=== PATIENT | female | born 1995 | race Caucasian/White ===

== ENCOUNTER 2017-12-10 11:59 | Emergency (ER) | payer BC ==
--- NOTE | 2017-12-10 12:11 | EDPHY ---
H & P Time Seen by Provider: 12/10/17 12:07 HPI/ROS: CHIEF COMPLAINT: Chest pressure and racing heart rate HISTORY OF PRESENT ILLNESS: Patient presents for evaluation of intermittent chest pressure over the last 2 weeks. This sometimes associated with racing heart rate and sometimes not. Last night she had symptoms for about 30 min with some central chest pressure and sensation that her heart was beating fast although when she took her pulse she felt like it was not actually fast. Currently associated with some tingling and numbness around her mouth and in both hands and fingers. She also feels little bit shaky in her hands and fingers. REVIEW OF SYSTEMS: Eye: no change in vision ENT: no sore throat Cardiac: No fainting or syncope Pulmonary: no cough or SOB or hemoptysis Abdomen: no vomiting, diarrhea, abdominal pain Musculoskeletal: no back pain Skin: no rash Neuro: no headache Constitutional: no fever : no urinary symptoms She says her glucose which is about 80-150 normally has been swinging or last couple weeks between 34 and even up as high as 500 A comprehensive 10 point review of systems is otherwise negative aside from elements mentioned in the history of present illness. PAST MEDICAL HISTORY: Type 1 diabetes Family history: Negative for DVT or PE Social history: No recent travel or immobilization or surgery General Appearance: Alert and conversant, cooperative. Eyes: No scleral icterus. ENT, Mouth: Normal mucous membranes. Respiratory: Normal respiratory effort, breath sounds equal, lungs are clear to auscultation. Cardiovascular: Regular rate and rhythm. Normal radial pulses in both hands, normal capillary refill in fingers. Gastrointestinal: Abdomen is soft and non tender. Neurological: Alert, face symmetric, normal motor and sensory in extremities. Skin: Warm and dry, no rashes. Musculoskeletal: No peripheral edema. No calf tenderness. Psychiatric: Not agitated. Emergency Department course/MDM: Objectively appears to have normal perfusion and upper extremities. She is not hyperventilating and does not think she was hyperventilating earlier. I do not think it is likely she has acute coronary syndrome or pulmonary embolism. Cardiology referral for Holter monitor for her intermittent palpitations. Labs reviewed with the patient now, appear to be appropriately controlled for type 1 diabetic. Smoking Status: Never smoked Constitutional: Initial Vital Signs Temperature (C) 37.0 C 12/10/17 12:03 Heart Rate 95 12/10/17 12:03 Respiratory Rate 16 12/10/17 12:03 Blood Pressure 130/103 H 12/10/17 12:03 O2 Sat (%) 96 12/10/17 12:03 Allergies/Adverse Reactions: No Known Allergies Allergy (Unverified 12/10/17 12:05) Home Medications: Medication Instructions Recorded Concerta 12/10/17 novoLOG 12/10/17 Medical Decision Making - Diagnostics EKG Interpretation: 12-lead EKG interpreted by me; official reading is in computer system. My interpretation is sinus rhythm rate 82, normal intervals and no ischemic changes. - Data Points Laboratory Results: Laboratory Results 12/10/17 12:30 12/10/17 12:30 12/10/17 12/10/17 12/10/17 12:35 12:30 12:30 WBC 6.28 10^3/uL 10^3/uL (3.80-9.50) RBC 4.90 10^6/uL 10^6/uL (4.18-5.33) Hgb 13.7 g/dL g/dL (12.6-16.3) Hct 41.0 % % (38.0-47.0) MCV 83.7 fL fL (81.5-99.8) MCH 28.0 pg pg (27.9-34.1) MCHC 33.4 g/dL g/dL (32.4-36.7) RDW 14.0 % % (11.5-15.2) Plt Count 321 10^3/uL 10^3/uL (150-400) MPV 8.9 fL fL (8.7-11.7) Neut % (Auto) 63.9 % % (39.3-74.2) Lymph % (Auto) 27.1 % % (15.0-45.0) Ware % (Auto) 6.1 % % (4.5-13.0) Eos % (Auto) 2.1 % % (0.6-7.6) Baso % (Auto) 0.6 % % (0.3-1.7) Nucleat RBC Rel Count 0.0 % % (0.0-0.2) Absolute Neuts (auto) 4.02 10^3/uL 10^3/uL (1.70-6.50) Absolute Lymphs (auto) 1.70 10^3/uL 10^3/uL (1.00-3.00) Absolute Monos (auto) 0.38 10^3/uL 10^3/uL (0.30-0.80) Absolute Eos (auto) 0.13 10^3/uL 10^3/uL (0.03-0.40) Absolute Basos (auto) 0.04 10^3/uL 10^3/uL (0.02-0.10) Absolute Nucleated RBC 0.00 10^3/uL 10^3/uL (0-0.01) Immature Gran % 0.2 % % (0.0-1.1) Immature Gran # 0.01 10^3/uL 10^3/uL (0.00-0.10) Sodium 138 mEq/L mEq/L (135-145) Potassium 3.9 mEq/L mEq/L (3.3-5.0) Chloride 101 mEq/L mEq/L (97-110) Carbon Dioxide 26 mEq/l mEq/l (22-31) Anion Gap 11 mEq/L mEq/L (6-14) BUN 10 mg/dL mg/dL (7-23) Creatinine 0.7 mg/dL mg/dL (0.6-1.0) Estimated GFR > 60 Glucose 143 mg/dL H mg/dL (70-100) Calcium 9.9 mg/dL mg/dL (8.5-10.4) POC Troponin I 0.00 ng/mL ng/mL (0.00-0.08) Point of Care Test Results: Chemistry 12/10/17 12:35 POC Troponin I 0.00 ng/mL ng/mL (0.00-0.08) Departure - Departure Disposition: Home, Routine, Self-Care Clinical Impression: Chest pressure, Heart palpitations Condition: Good Instructions: Heart Palpitations (ED) Referrals: Galen Cheng MD [Medical Doctor] - As per Instructions (Call Cardiology in the next 24 hr to arrange follow-up and consideration of outpatient cardiac Holter monitoring.)
--- NOTE | 2017-12-10 12:46 | CPEKG ---
Test Reason : OPEN Blood Pressure : / mmHG Vent. Rate : 082 BPM Atrial Rate : 082 BPM P-R Int : 121 ms QRS Dur : 082 ms QT Int : 366 ms P-R-T Axes : 030 035 058 degrees QTc Int : 428 ms Sinus rhythm Confirmed by Jad Gloria ([id number]) on 12/10/2017 12:45:19 PM Referred By: Confirmed By:Jad Gloria
[2017-12-10 12:49] LABS: PLATELET COUNT 321 10^3/uL (150-400)
[2017-12-10 13:29] VITALS: BP 138/90
== END 2017-12-10 13:29 | disposition home or self-care (01) ==
DX: R07.89 Other chest pain (principal); R00.9 Unspecified abnormalities of heart beat; E10.9 Type 1 diabetes mellitus without complications
CPT/HCPCS: 84484-PO